=== PATIENT | female | born 1970 | race Asian ===

== ENCOUNTER 2019-03-14 08:33 | Emergency (ER) | payer MEDICAID, OTHER ==
[~2019-03-14] VITALS: Ht 170.2 cm; Wt 52.2 kg
[2019-03-14 09:39] LABS: Urine WBC None Seen /hpf (0 - 5)
[2019-03-14 09:49] LABS: Basophils # (auto) 0 uL; Eosinophils # (auto) 0 uL; Monocytes # (auto) 0.4 uL
[2019-03-14 09:52] LABS: Basophils % (auto) 0.6 % (0.0-2.0); Eosinophils % (auto) 0.3 % (0.0-7.0); Hematocrit 40.7 % (36.0-46.0); Hemoglobin 13.1 g/dL (12.2-16.2); Lymphocytes % (auto) 17.6 % (10.0-50.0); Mean Corpuscular Hemoglobin 26.3 pg (28.0-32.0); Mean Corpuscular Hgb Conc. 32.1 g/dL (32.0-36.0); Mean Corpuscular Volume 81.8 fL (80.0-100.0); Monocytes % (auto) 6.2 % (0.0-12.0); Neutrophils # (auto) 4.4 uL; Neutrophils % (auto) 75.3 % (37.0-80.0); Nucleated Red Blood Cells % 0.1 %; Platelet Count (auto) 223 10^3/uL (140-450); Red Blood Cells 4.98 10^6/uL (4.0-5.20); Red Cell Distribution Width 15.1 % (11.8-14.3); White Blood Cell 5.9 10^3/uL (4.4-10.8)
[2019-03-14 09:57] LABS: Urine Bacteria NONE SEEN /hpf (None Seen); Urine Blood Negative /uL (Negative); Urine Specific Gravity 1.018 (1.001-1.035)
[2019-03-14 10:07] LABS: Albumin 3.9 g/dL (3.4-5.0); Anion Gap 7 (5-15); Blood Urea Nitrogen 12 mg/dL (7-18); Calcium 8.4 mg/dL (8.5-10.1); Carbon Dioxide 25 mmol/L (21-32); Chloride 108 mmol/L (98-107); Glucose 128 mg/dL (74-106); Sodium 140 mmol/L (136-145)
[2019-03-14 10:14] LABS: Alanine Aminotransferase 22 U/L (13-56); Alkaline Phosphatase 70 U/L (45-117); Aspartate Aminotransferase 18 U/L (15-37); BUN/Creatinine Ratio 19.4; Bilirubin, Total 0.4 mg/dL (0.2-1.0); GFR African American 133 mL/min; GFR Non-African American 110 mL/min
[2019-03-14] MEDS ORDERED: SODIUM CHLORIDE 0.9% 1,000 ML IV ONE (11:20)
[2019-03-14 12:01] VITALS: BP 113/75
== END 2019-03-14 13:18 | disposition home or self-care (01) ==
LOC: ER 08:36
DX: M25.512 Pain in left shoulder (principal); R42 Dizziness and giddiness; R51 Headache; R06.4 Hyperventilation; R29.0 Tetany; R11.2 Nausea with vomiting, unspecified
CPT/HCPCS: 36415; 71046; 80053; 81001; 81025; 83735; 84443; 84484; 85025; 85379; 93005; 96360; 99284; J7030